=== PATIENT | female | born 1955 | race Hispanic/Latino ===

== ENCOUNTER 2018-03-27 08:43 | Outpatient (CLI) | payer OTHER | END 2018-03-27 19:41 | disposition home or self-care (01) | LOC: MAMMO 08:43 | DX: Z12.31 Encounter for screening mammogram for malignant neoplasm of breast (principal) ==

== ENCOUNTER 2018-06-25 04:53 | Emergency (ER) | payer OTHER ==
[~2018-06-25] VITALS: Ht 157.5 cm; Wt 76.7 kg
[2018-06-25] MEDS ORDERED: LISI10TA11 PO (05:32)
[2018-06-25] MEDS ORDERED: HYDROCHLOROT50 MG PO (05:33)
[2018-06-25] MEDS ORDERED: KLOR-CON M2020 MEQ (05:34)
[2018-06-25] MEDS ORDERED: BUPROPION HYDR150 M1 PO (05:35)
[2018-06-25] MEDS ORDERED: FURO40TA93 PO (05:36)
[2018-06-25] MEDS ORDERED: GABA300C2 PO (05:37)
[2018-06-25] MEDS ORDERED: TIROSINT75 MCG (05:38)
[2018-06-25 06:28] LABS: PLATELET COUNT 285 K/uL (152-353)
[2018-06-25 06:29] LABS: POTASSIUM 4.5 mmol/L (3.6-5.2)
[2018-06-25 07:21] LABS: PARTIAL THROMBOPLASTIN TIME 20.9 SECONDS (24.5-33.6)
[2018-06-25 09:05] VITALS: BP 135/60; TEMP 97.8
== END 2018-06-25 09:05 | disposition home or self-care (01) ==
LOC: ED 04:53
PROVIDERS: Family Medicine
DX: M10.9 Gout, unspecified (principal)
CPT/HCPCS: 80053; 85027; 85379; 85610; 85730; 99283

== ENCOUNTER 2019-08-14 10:32 | Outpatient (CLI) | payer OTHER ==
[~2019-08-14 10:32] MED LIST: BUPROPION HYDR150 M1 PO; FURO40TA93 PO; GABA300C2 PO; HYDROCHLOROT50 MG PO; KLOR-CON M2020 MEQ; LISI10TA11 PO; TIROSINT75 MCG
== END 2019-08-14 19:48 | disposition home or self-care (01) ==
LOC: RAD 10:32
DX: M25.511 Pain in right shoulder (principal); M25.572 Pain in left ankle and joints of left foot

== ENCOUNTER 2020-01-21 09:04 | Outpatient (CLI) | payer OTHER | END 2020-01-21 22:23 | disposition home or self-care (01) | LOC: US 09:04 | PROVIDERS: ATTEND Nurse Practitioner | DX: R10.12 Left upper quadrant pain (principal) ==

== ENCOUNTER 2022-08-02 09:57 | Outpatient (CLI) | payer OTHER ==
[~2022-08-02 09:57] MED LIST changes: +BIOTIN1000 MCG PO; +BUPROPION HYDR300 M1 PO; +DHEA50 M2; +DICYCLOMINE HYD20 MG PO; +ESTRADIOL PO; +FEBUXOSTAT40 MG PO; -KLOR-CON M2020 MEQ; +KLOR-CON M2020 MEQ PO; +LEVAQUIN250 MG PO; +MECLIZINE25 MG PO; +NP THYROID90 MG PO; +ONDANSETRON HYDR8 MG PO; +POTASSIUM CITR15 MEQ PO; +PROGESTERONE200 M1 PO; +TRIAMTERENE HCTZ PO; +VITAMIN D32000 UNI1 PO; +[UNRECOGNIZED DRUG - OTHER] PO
== END 2022-08-02 19:03 | disposition home or self-care (01) ==
LOC: MAMMO 09:57
PROVIDERS: ATTEND Specialist
DX: Z12.31 Encounter for screening mammogram for malignant neoplasm of breast (principal)

== ENCOUNTER 2022-08-22 09:34 | Outpatient (CLI) | payer OTHER | END 2022-08-22 19:26 | disposition home or self-care (01) | LOC: MAMMO 09:34 | PROVIDERS: ATTEND Specialist | DX: R92.8 Other abnormal and inconclusive findings on diagnostic imaging of breast (principal) | CPT/HCPCS: G0279 ==